=== PATIENT | female | born 1960 | race Hispanic/Latino ===

== ENCOUNTER 2017-03-22 08:11 | Outpatient (CLI) | payer MEDICARE ==
--- NOTE | 2017-03-22 08:22 | XRay Report ---
XRAY LEFT HAND THREE VIEWS: 03/22/17 08:11:00 CLINICAL: Left hand pain. FINDINGS: Periarticular osteopenia. No fracture or dislocation. Mild osteoarthritis at the basal joint of the thumb, the first MTP joint and the IP joint of the thumb. The carpal bones are intact. The distal radius and ulna are intact. Mild nonspecific soft tissue swelling of the index finger and middle finger. IMPRESSION: Mild osteoarthritis. Nonspecific soft tissue swelling of the index and middle finger.
== END 2017-03-22 08:12 | disposition home or self-care (01) ==
LOC: SPVIMAG 08:11
PROVIDERS: ATTEND Orthopaedic Surgery
DX: M19.042 Primary osteoarthritis, left hand (principal); M18.9 Osteoarthritis of first carpometacarpal joint, unspecified; M85.842 Other specified disorders of bone density and structure, left hand